=== PATIENT | female | born 1985 | race Caucasian/White ===

== ENCOUNTER 2020-01-11 15:37 | Inpatient (IN) | payer BC ==
[2020-01-11 16:18] VITALS: BP 126/62; TEMP 98.3; BMI 31.9
[2020-01-11] MEDS ORDERED: hydrALAZINE 20 MG/ML VIAL SLOW IVP PRN ×2 (16:49→17:33)
[2020-01-11] MEDS ORDERED: Lactated Ringer's 1,000 ML IV SCH (17:00)
--- NOTE | 2020-01-11 17:10 | PDOC.LDHP ---
Labor and Delivery H&P Chief complaint: contractions HPI: Patient is a 34 yo at 32.4 wga who presents with complaint of contractions that started around 1215pm today. Says she tried laying down and taking a shower but had no relief. Was originally feeling contractions about every 5-7 min apart, now feeling them about every 2-3 min apart which is consistent with what is seen on FHT. Patient denies any other symptoms. Denies dysuria, back pain, fever/chills, nausea, vomiting, vaginal bleeding, vaginal discharge, or loss of fluid. Feeling baby move often. No recent intercourse. Current gestational age (weeks): 32 (32.4) Due date: 03/03/20 Grav: 2 Para: 1 (1001) OB History Details: 1st was at 39 weeks gestational age, no complications Denies issues in current . States no issues with blood pressure or blood sugars any . Current complications: none Abnormal US findings: No Past Medical History: kidney stones in 1st Current medications: pre- vitamins Previous surgical history: none Allergies/Adverse Reactions: Allergies Allergy/AdvReac Type Severity Reaction Status Date / Time adhesive tape Allergy Verified 01/11/20 16:19 Social history: none - Physical Exam Vital signs reviewed and normal: yes General: NAD, resting, breathing through contractions Lungs: nonlabored breathing Abdomen: gravid Extremeties: no edema FHT: category 1, variability present [place] contractions every: 2-3 min - Vaginal Exam cm dilated: 2 Effacement: 25% Station: -3 - OB Labs Blood type: unknown RH: unknown Antibody Screen: unknown HIV: unknown RPR: unknown HEPSAg: unknown 1 hour GCT: unknown GBS: unknown - Assessment contractions - Plan Plan: observation in L&D -: Patient is a 34 yo at 32.4 wga who presents with contractions: Labor, rule out -SVE at 1645 is 2/3, posterior, soft -FHT reactive and reassuring, category 1 with moderate variability and 2 accels and no decels seen -check TVUS for cervical length -obtain FFN, will send if cervical length >2.5 cm -give 1 L IVF LR Dispo: Will observe in L&D triage. Await results of TVUS, if cervical length <2.5 cm will plan to admit to L&D. If cervical length >2.5 cm then plan to send FFN. Addendum 1730: Cervical length is 1.9 cm. Will admit to L&D. Please refer to Dr. Harley's dictation after this H&P for further management decisions.
--- NOTE | 2020-01-11 17:24 | HP ---
HISTORY AND PHYSICAL AND FACULTY ATTESTATION TIME OF EVALUATION: Roughly 1640 hours, it is now 1703 hours. LOCATION: Labor and Delivery Triage and Triage B. HISTORY OF PRESENT ILLNESS: In brief, I saw this patient along with Ceci Fung, who is our resident on-call. In brief, this is a G2, P1, 34-year-old female, who is at 32 weeks and 4 days with no previous history of (last delivery was vaginal at 39 weeks), who states that she may be having irregular contractions. She denies any vaginal bleeding or leakage of fluid or any recent trauma. She denies having recent intercourse. PAST MEDICAL HISTORY: Otherwise uncomplicated. OB HISTORY: Previous vaginal delivery at term and she had renal stones with that gestation. Other history is otherwise negative. PHYSICAL EXAMINATION: VITAL SIGNS: Stable and she is afebrile. She is normotensive. GENERAL: She is in no acute distress and does not clinically appear to be laboring. Interventions ordered. We have seen the patient at bedside and we have ordered a fibronectin collection as well as a cervical exam. If her cervix is less than 2 cm, we will also order a transvaginal ultrasound for cervical length. MONITOR: monitor was evaluated by me and Dr. Fung. We find the heart tones to be reactive at 32 weeks. There are contractions about every 5-7 minutes or so on tocodynamometer. ASSESSMENT: This is a patient at 32 weeks and 4 days, G2, P1, with a previous term delivery, here for possible labor. PLAN: 1. Check fFN and hold. 2. Check cervix. 3. If cervix is less than 2 cm, check transvaginal ultrasound and follow that protocol. 4. We will send the fFN. If the cervical length is less than 2.5 cm, let the fFN make final decision along with contraction pattern. 5. We will also give 1 L of LR fluid. Job ID: [id number]
[2020-01-11] MEDS ORDERED: Penicillin G Potassium 5 MILL.UNITS VIAL ONE (17:30)
[2020-01-11] MEDS ORDERED: Betamet Acet/Betamet Na Ph 30 MG/5 ML VIAL ONE (17:30)
[2020-01-11] MEDS ORDERED: HYDROcodone/Acetaminophen 5/325 mg Tablet PO PRN ×2 (17:33)
[2020-01-11] MEDS ORDERED: Promethazine HCl 25 MG/ML VIAL IM PRN (17:33)
[2020-01-11] MEDS ORDERED: Ibuprofen 800 MG TAB PO PRN (17:33)
[2020-01-11] MEDS ORDERED: NS / Oxytocin 40 units/1000ml 1,000 ML IV PRN (17:33)
[2020-01-11] MEDS ORDERED: Ondansetron PF 4 MG/2 ML Vial IVP PRN (17:33)
[2020-01-11] MEDS ORDERED: Lidocaine 1% (PF) 30 ML VIAL SC PRN (17:33)
[2020-01-11] MEDS ORDERED: Butorphanol Tartrate 1 MG/ML VIAL SLOW IVP PRN (17:33)
--- NOTE | 2020-01-11 17:33 | PDOC.BPN ---
- Brief Progress Note Encounter Time: 17:30 TVUS is 1.9cm by direct communication from [employer]. We will: 1. Admit fopr PTL 2. Call NICU 3. get EFW for pedi 4. Start GBS coverage 5. Past 32 weeks so no Mag Sulfate 6. Steroids
[2020-01-11] MEDS ORDERED: Penicillin G Potassium 5 MILL.UNITS in Sodium Chloride 0.9% 100 ML IVPB SCH (17:45)
--- NOTE | 2020-01-11 18:03 | PDOC.BPN ---
- Brief Progress Note Encounter Date: 01/11/20 Procardia 10 mg po TID x 48 hours for tocolysis just ordered per ACOG Bulletin. Start is now, stop is 01/13/20 at 1830
--- NOTE | 2020-01-11 18:09 | ULT ---
LIMITED TRANSVAGINAL OB ULTRASOUND: 01/11/20 HISTORY: Evaluate cervical length. FINDINGS/IMPRESSION: Transvaginal pelvic ultrasound demonstrates a cervical length of about 1.4 cm. POS: OFF
[2020-01-11 18:12] LABS: Hemoglobin 10.8 g/dL (12.0-16.0); Mean Corpuscular HGB CONC 34.4 g/dL (32.0-36.0); Mean Corpuscular Hemoglobin 29.6 pg (27.0-31.0); Mean Corpuscular Volume 86.2 fL (78.0-98.0); Mean Platelet Volume 9.7 fL (7.4-10.4); Platelet Count 158 thou/uL (130-400); RBC Distribution Width 11.7 % (11.5-14.5); Red Blood Cell (RBC) Count 3.64 mill/uL (4.20-5.40); White Blood Cell (WBC) Count 10.2 thou/uL (4.8-10.8)
[2020-01-11] MEDS: Betamet Acet/Betamet Na Ph 30 MG/5 ML VIAL IM SCH (18:12)
[2020-01-11] MEDS: Penicillin G 2.5 MILL.units 2.5 MILL.UNITS in Premix Bag 1 BAG IVPB SCH ×2 (18:24→21:45)
[2020-01-11] MEDS: NIFEdipine 10 MG CAP PO SCH (18:26)
--- NOTE | 2020-01-11 18:28 | PDOC.BPN ---
- Brief Progress Note Encounter Date: 01/11/20 Encounter Time: 18:25 Correction: cervical length is 1.3 cm
--- NOTE | 2020-01-11 18:37 | PDOC.APC ---
Antepartum Consult LEWIS ARZOLA is a 34 year old female at [32 4/7] gestational weeks. I was asked by Dr Harley to speak with the patient regarding anticipated course for a baby born at 32 weeks. I spoke with the patient. I outlined that the timing and mode of delivery is a decision that will be made by the OB service. Once the patient is taken for delivery, the resuscitation team will be present. The initial focus will be on respiratory stabilization and may include minimal assistance, CPAP or intubation with surfactant administration. I discussed that the patient will need to be admitted to the NICU in an isolette due to temperature instability associated with prematurity. We will then obtain IV access (peripheral will be first line, umbilical if unable to obtain peripheral) as babies are at risk for hypoglycemia. We discussed that babies born are at higher risk for feeding intolerance, infection and jaundice. I discussed that breastmilk is the best nutrition for babies and she is strongly encouraged to pump after delivery. Mother does plan to breastfeed and consented to the use of donor milk. I explained that the duration of hospital stay will be determined on the clinical course of the baby. She had the opportunity to ask questions. I encouraged her to contact our service again if additional questions arise. At the time of consult all maternal serologies are pending. I spent a total of 20 minutes with patient & family with greater than 50% of the time counseling & coordinating care.
[2020-01-11 18:50] LABS: HBSAg Index 0.15 S/CO (0-0.99); HIV (1/2) Antibody/Antigen Non-Reactive (NonReactive); HIV 1/2 INDEX 0.07 S/CO (<1.00); Hep B Surf Ag Non-Reactive S/CO (NonReactive); Syphilis Antibody Nonreactive (Nonreactive); Syphilis Antibody Index 0.02 S/CO (<1.00 Non-Reactive)
--- NOTE | 2020-01-11 18:56 | PDOC.BPN ---
- Brief Progress Note Encounter Time: 18:54 Sono EFW states 2608 grams...which is S>D (measuring 35 weeks). Howeverm the EDC we have plces her at 32 weeks 4 days. I do not have the Record and [facility] is not here to confirm EFW. Radha has requested EDC and chart from [facility] to confirm EDC
--- NOTE | 2020-01-11 19:09 | PDOC.BPN ---
- Brief Progress Note Encounter Date: 01/11/20 Encounter Time: 19:05 Per record, EDC confirmed and EGA is 32 weeks 4 days with EFW 2608g
[2020-01-11] MEDS: Lactated Ringer's 1,000 ML IV SCH ×2 (19:26→20:29)
--- NOTE | 2020-01-11 19:45 | ULT ---
ULTRASOUND OBSTETRICAL LIMITED: 01/11/20 at 6:45 p.m. HISTORY: 34-year-old female in third trimester of with labor. Evaluate weight. FINDINGS: number: Enriquez. lie: Cephalic. Maternal cervix: Obscured. Placenta: Anterior. No placenta previa. Amniotic fluid volume: 9.5 cm. heart rate: 126 bpm anatomy not evaluated. biometry: Head circumference (HC): 32.6 cm 36w 6d Biparietal diameter (BPD): 9.1 cm 36w 6d Abdominal circumference (AC): 31.0 cm 35w 0d Femur length (FL): 6.7 cm 34w 2d Average ultrasound age (AUA): 35w 5d Estimated date of delivery (RUSTY): 02/10/20 Last menstrual period (LMP): 05/28/19 Gestational age by LMP: 32w 4d Estimated weight (EFW): 2608 g +/- 386 g (5 lb. 12 oz +/- 14 oz). IMPRESSION: 1. Live third trimester intrauterine gestation. 2. Estimated gestational age of 35 weeks, 5 days. 3. Vertex lie. 4. Estimated weight of 2608 g +/- 386 g (5 lb. 12 oz. +/- 14 oz). NISHANT Jenkins POS: SAMANTHA
--- NOTE | 2020-01-11 21:47 | PDOC.EVN ---
Event Note - Event Note Event Note: Stopped in to visit with patient while here for back up request. Pt reports a mix of [place] vs. mildly painful ctx every few minutes but is able to rest comfortably through them. Pt is hungry and requesting food. No concerns. Plan of care with [facility] to follow this evening and for part of the day tomorrow until I am available reviewed.
[2020-01-11] MEDS ORDERED: Zolpidem Tartrate 5 MG TAB PO SCH ×2 (23:00→23:30)
[2020-01-12] MEDS ORDERED: NIFEdipine 10 MG CAP ONE (02:33)
[2020-01-12] MEDS: NIFEdipine 10 MG CAP PO SCH ×3 (02:34→18:00)
[2020-01-12] MEDS: Penicillin G 2.5 MILL.units 2.5 MILL.UNITS in Premix Bag 1 BAG IVPB SCH ×4 (02:34→14:47)
--- NOTE | 2020-01-12 06:03 | PDOC.BPN ---
- Brief Progress Note Encounter Date: 01/12/20 Encounter Time: 06:00 L&D HD2 EGA 32 weeks 5 days Meds: celestone; PNG; procardia for tocolysis Stable. No LOF, no VB Vitals wnl TOCO with decreased CTXs, FHTs reactive Arrestd PTL at 32 weeks 5 days, sono with EFW 2600 so possible LGA. Dates are at 32 weeks and 5 Last CX check was 2 cm
--- NOTE | 2020-01-12 06:12 | PDOC.BPN ---
- Brief Progress Note Encounter Time: 06:10 At bedside. EFW reviewed. BUT dates are very good due to timed ovulation with letrozole. Could be just LGA but prior 1 hr was normal
--- NOTE | 2020-01-12 08:14 | PDOC.BPN ---
- Brief Progress Note Encounter Time: 08:10 Patient has a child at home with pending surgery tomorrow AM and would like to go home today in the vening if stable for this. We have addressed as a team and nursing is aware. Possible edenilson at 1900 after second celestone.
[2020-01-12] MEDS: Lactated Ringer's 1,000 ML IV SCH (10:53)
[2020-01-12] MEDS: Betamet Acet/Betamet Na Ph 30 MG/5 ML VIAL IM SCH (18:00)
[2020-01-12 18:19] LABS: SARS-CoV-2 MS2 Positive; SARS-CoV-2 N Gene Negative; SARS-CoV-2 S Gene Negative; SARS-CoV-2 by NAA Not Detected (NotDetected); SARS-CoV-2 orf1ab Negative
[2020-01-12] MEDS ORDERED: Zolpidem Tartrate 5 MG TAB PO SCH (21:00)
--- NOTE | 2020-01-13 12:05 | DIS ---
DATE OF ADMISSION: 01/11/2020 DATE OF DISCHARGE: 01/12/2020 ADMISSION DIAGNOSIS: contractions at 32 weeks. DISCHARGE DIAGNOSIS: contractions at 32 weeks with clinical resolution of symptoms. HOSPITAL COURSE: Ms. Domitila Solorio presented to Labor and Delivery on 01/11/2020 and was admitted by the hospitalist for concern for labor. The patient was given a dose of Celestone for lung maturity, started on penicillin for group B strep prophylaxis as well as oral nifedipine for symptomatic contractions. Approximately 5 hours after admission, the patient was already feeling better with less uterine contractions. She remained overnight through hospital day #2. She continued to report less symptomatic contractions and Ivan Galarza contractions. On hospital day #2, she received her second dose of Celestone. She reported approximately 1 to 2 Ivan Galarza or mild contractions per hour and requested discharge home with close outpatient followup. The patient was discharged home in good condition with instructions to follow up in my office with her weekly scheduled visit. Nifedipine 10 mg oral was prescribed for symptomatic uterine irritability, and strict labor precautions were given. Job ID: [id number]
== END 2020-01-12 18:15 | disposition home or self-care (01) | DRG 833 ==
LOC: L&D/OP 15:37 → L&D 19:20
PROVIDERS: ADMIT Obstetrics & Gynecology; ATTEND Obstetrics & Gynecology
DX: O60.03 Preterm labor without delivery, third trimester (principal); Z3A.32 32 weeks gestation of pregnancy; Z20.828 Contact with and (suspected) exposure to other viral communicable diseases; O36.63X0 Maternal care for excessive fetal growth, third trimester, not applicable or unspecified
CPT/HCPCS: 36415; 76815; 85027; 86780; 86850; 86900; 86901; 87081; 87340; 87389; 87635; 99285; J0702; J2540; U0003

== ENCOUNTER 2020-01-24 20:36 | Observation (INO) | payer BC ==
[2020-01-24 21:14] VITALS: BP 111/70; BMI 32.4
[2020-01-24] MEDS ORDERED: hydrALAZINE 20 MG/ML VIAL SLOW IVP PRN (22:30)
--- NOTE | 2020-01-24 22:31 | PDOC.LDHP ---
Labor and Delivery H&P Chief complaint: contractions HPI: 34yo @ 34.3 presents for ctx. Patient was recently admitted on 01/11/20 at 32.4 for concern for labor. At that time CL was 1.9, patient was given Celestone x2, nifedipine, GBS was obtained and negative. Patient was observed for 48 hours and ctx stopped and patient was discharged with labor precautions. Patient has had intermittent ctx and sanaz clark since discharge and then starting today at approx 1700 patient had onset of ctx that were more intense, about every 2-3 min, and persistent. Denies any VB, LOF, VD, dysuria, frequency, hematuria, fever/chills, CP, SOB, n/v, ARIAS, vision changes. Current gestational age (weeks): 34 (34.3) Due date: 03/03/20 Grav: 2 Para: 1 (1001) OB History Details: 1st was at 39 weeks gestational age, no complications Did have a nephrostomy tube placed during prior for nephrolithiasis. No recurrence. Current complications: none Past Medical History: none Current medications: pre- vitamins Previous surgical history: none Allergies/Adverse Reactions: Allergies Allergy/AdvReac Type Severity Reaction Status Date / Time adhesive tape Allergy Verified 01/24/20 21:05 No Known Drug Allergies Allergy Verified 01/24/20 21:05 Social history: none - Physical Exam Vital signs reviewed and normal: yes General: NAD, resting, other (mild discomfort with ctx but ambulating well and comfortable) Heart: RRR Lungs: CTAB Abdomen: gravid Extremeties: no edema FHT: category 1 (accels, no deccels, moderate variability) [place] Guerra contractions every: 2-3min - Vaginal Exam cm dilated: 3 Effacement: 50% (60) Station: 0 - OB Labs Blood type: O RH: positive Antibody Screen: negative HEPSAg: negative (hep C negative) GBS: negative Rubella: immune - Assessment 34yo @ 34.3 presents for ctx, concern for labor # labor r/o - s/p Celestone x2 @ 32.4wk at previous admission for labor. At that time CL was 1.9cm, patient was 2/th/high. Anterior placenta. GBS negative. - SVE today /0 - Cat1 FHT with ctx q2-3min - Will monitor for approx 2 hours, IV and PO hydration, recheck SVE to determine if in labor PCP: Raffi Dispo: Monitor FHT, recheck in 2 hours. Above plan discussed with Dr. Villalta who agrees with plan.
[2020-01-24] MEDS ORDERED: Lactated Ringer's 1,000 ML IV SCH (23:00)
[2020-01-24 23:01] LABS: Bilirubin Negative (Negative); Blood, Urine Negative (Negative); Clarity Clear (Clear); Glucose, Urine (Dipstick) Normal (Negative); Ketone, Urine Negative (Negative); Leukocyte 25 Leu/uL (Negative); Nitrite Negative (Negative); Protein, Urine (Dipstick) 10 mg/dL (Neg-Trace); RBC/HPF 0-3 HPF (0-3); Specific Gravity, Urine 1.016 (1.002-1.036); Squamous Epithelial 0-3 HPF (0-3); Urobilinogen Normal mg/dL (Less than 2); WBC/HPF 0-3 HPF (0-3)
[2020-01-24 23:02] LABS: Bacteria/HPF 1+ HPF (None Seen)
[2020-01-24 23:03] LABS: Urine Culture Reflex Yes Yes
[2020-01-25] MEDS ORDERED: Promethazine HCl 25 MG/ML VIAL IM PRN (01:14)
[2020-01-25] MEDS ORDERED: Ondansetron PF 4 MG/2 ML Vial IVP PRN (01:14)
[2020-01-25] MEDS ORDERED: Butorphanol Tartrate 1 MG/ML VIAL SLOW IVP PRN (01:14)
[2020-01-25] MEDS ORDERED: Acetaminophen 500 MG TAB PO PRN (01:14)
[2020-01-25] MEDS ORDERED: hydrALAZINE 20 MG/ML VIAL SLOW IVP PRN (01:14)
[2020-01-25] MEDS ORDERED: Sodium Chloride 0.9% 1,000 ML IV SCH (01:30)
[2020-01-25] MEDS ORDERED: Zolpidem Tartrate 5 MG TAB PO SCH (01:30)
--- NOTE | 2020-01-25 01:53 | PDOC.BPN ---
- Brief Progress Note Encounter Date: 01/25/20 Encounter Time: 01:49 O: Ctx have increased in intensity, still about q3-4min. No LOF, VB. No acute concerns. S: VSS Cat 1 strip with accels, no deccels. Ctx q3-4min SVE /0 A/P: 34yo @ 34.4 presented for ctx, concern for labor # labor r/o - s/p Celestone x2 @ 32.4wk at previous admission for labor. At that time CL was 1.9cm, patient was 2/th/high. Anterior placenta. GBS negative. - SVE /0 at presentation - SVE @ 2330 /0 - Cat1 FHT with ctx q3-4min - UA positive for leukocytes and 1+ bacteria, will start on Rocephin, UCx pend ing. - Due to increased cervical dilation, will admit to obs for overnight monitoring. MIVF. Monitor for signs of labor, recheck SVE in AM or earlier if indicated. PCP: Raffi Dispo: Admit to obs for monitoring of possible labor. Rocephin for UTI. Above plan discussed with patient at bedside who voiced agreement and understanding. Above plan discussed with Dr. Villalta who agrees with above plan and documentation.
[2020-01-25] MEDS ORDERED: cefTRIAXone\\ROCEPHIN 1 GM in Sodium Chloride 0.9% 100 ML IVPB SCH (02:00)
[2020-01-25 07:38] VITALS: TEMP 98.5
--- NOTE | 2020-01-25 07:38 | PDOC.LDPN ---
Labor & Delivery Progress Note - Subjective Subjective: comfortable, no concerns - Objective Vital signs reviewed and normal: yes General: NAD, resting Uterine fundus: non tender FHT: category 1 [place] contractions every: 4min Plan: continue plan of care -: 34yo @ 34.4 presented for ctx, concern for labor # labor r/o - s/p Celestone x2 @ 32.4wk at previous admission for labor. At that time CL was 1.9cm, patient was 2/th/high. Anterior placenta. GBS negative. - SVE 60/0 at presentation - SVE @ 2330 460/0 - SVE @ 0730 60/0 - Cat1 FHT with ctx q3-4min - UA positive for leukocytes and 1+ bacteria, will start on Rocephin, UCx pending. - Discussed options for discharge home vs continued monitoring and patient would like to be monitored longer on L&D. Agree with plan. - Will continue to monitor and recheck SVE, if no progression later in the day, would be appropriate for discharge with strict labor precautions PCP: Raffi Dispo: Admitted to obs for monitoring of labor. No cervical change overnight, will continue to monitor. Possible admission for labor vs discharge with labor precautions this PM pending course. Above plan discussed with Dr. Villalta who agrees with above plan and documentation. Addendum - Attending - Attending Attestation Date/Time: 01/27/20 [id number] I personally evaluated the patient and discussed the management with Dr. Domingo I agree with the History, Examination, Assessment and Plan documented above with any addition or exceptions noted below.
[2020-01-25] MEDS ORDERED: Prenatal Vitamin 1 TAB PO SCH (09:00)
--- NOTE | 2020-01-25 14:45 | PDOC.LDPN ---
Labor & Delivery Progress Note - Subjective Subjective: comfortable - Objective Vital signs reviewed and normal: yes General: NAD, resting Uterine fundus: non tender SVE: UNCHANGED [place] contractions every: 5-6 min Other exam findings: - Assessment (1) contractions Code(s): O47.9 - FALSE LABOR, UNSPECIFIED Status: Acute Plan: other (FACULTY: I have seen the patient at bedside. Agree with assessment and plan. ) -: Patient monitored for extended observation. Contractions have slowed down and become less painful. Urinalysis suspicious for UTI, abx sent to outpatient pharmacy. SVE unchanged from prior exam >6 hours. . Sent home with labor precautions. She is 34.6 wks today. She has already received steroids in the event of delivery. She will f/u with pcp next week. The patient was understanding and in agreement with the plan of care. Discussed case with Dr. Harley attending. Maria Elena HOLT PGY2
== END 2020-01-25 14:55 | disposition home health service (06) ==
LOC: L&D/OP 20:36 → L&D 01-25 01:14 → INTOOBSV 01-25 01:14
PROVIDERS: ADMIT Obstetrics & Gynecology; ATTEND Obstetrics & Gynecology
DX: O47.03 False labor before 37 completed weeks of gestation, third trimester (principal); Z3A.34 34 weeks gestation of pregnancy; Z91.048 Other nonmedicinal substance allergy status
CPT/HCPCS: 81001; 87086; 96365; G0378; J0696; J3490

== ENCOUNTER 2020-02-21 08:26 | Outpatient (CLI) | payer BC ==
[2020-02-21 20:15] LABS: SARS-CoV-2 MS2 Positive; SARS-CoV-2 N Gene Negative; SARS-CoV-2 S Gene Negative; SARS-CoV-2 by NAA Not Detected (NotDetected); SARS-CoV-2 orf1ab Negative
== END 2020-02-21 08:27 | disposition home or self-care (01) ==
LOC: LABBT 08:26
PROVIDERS: ATTEND Obstetrics & Gynecology
DX: Z01.812 Encounter for preprocedural laboratory examination (principal); Z20.828 Contact with and (suspected) exposure to other viral communicable diseases
CPT/HCPCS: 87635; U0003

== ENCOUNTER 2020-02-21 12:53 | Inpatient (IN) | payer BC ==
[~2020-02-21 12:53] MED LIST: Bupivacaine 0.25% HCL 30 ML VIAL ONE; Bupivacaine PF 0.5% 30 ML VIAL ONE; Bupivacaine/Epinephrine 0.25% 30 ML VIAL ONE; Bupivacaine/Epinephrine 0.5% 10 ML VIAL ONE
[2020-02-21 13:37] VITALS: BMI 34.4
[2020-02-21 14:14] LABS: Amnisure Test RUPTURE DETECTED (No Rupture)
[2020-02-21 14:15] LABS: Amnisure Internal Control QC ACCEPTABLE (ACCEPTABLE)
[2020-02-21] MEDS ORDERED: Ondansetron PF 4 MG/2 ML Vial IVP PRN ×3 (14:42→22:33)
[2020-02-21] MEDS ORDERED: NS / Oxytocin 40 units/1000ml 1,000 ML IV PRN (14:42)
[2020-02-21] MEDS ORDERED: hydrALAZINE 20 MG/ML VIAL SLOW IVP PRN ×2 (14:42→22:33)
[2020-02-21] MEDS ORDERED: Butorphanol Tartrate 1 MG/ML VIAL SLOW IVP PRN (14:42)
[2020-02-21] MEDS ORDERED: Lidocaine 1% (PF) 30 ML VIAL SC PRN (14:42)
[2020-02-21] MEDS ORDERED: Promethazine HCl 25 MG/ML VIAL IM PRN ×2 (14:42→16:26)
[2020-02-21] MEDS ORDERED: Ibuprofen 800 MG TAB PO PRN (14:42)
[2020-02-21] MEDS ORDERED: Acetaminophen 500 MG TAB PO PRN (14:42)
[2020-02-21] MEDS ORDERED: HYDROcodone/Acetaminophen 5/325 mg Tablet PO PRN ×4 (14:42→22:33)
[2020-02-21] MEDS ORDERED: Meperidine HCl/PF 25 MG/ML VIAL IM/IV PRN (14:42)
[2020-02-21] MEDS ORDERED: Lactated Ringer's 1,000 ML IV SCH (14:45)
--- NOTE | 2020-02-21 14:46 | PDOC.LDHP ---
Labor and Delivery H&P Chief complaint: loss of fluid HPI: 34 yo WF presents c/o LOF clear starting at 12PM today. Also reports + bloody show. Current gestational age (weeks): 38 Due date: 03/03/20 Dating criteria: last menstrual period Grav: 2 Para: 1 OB History Details: x1 at term. PNC with Dr. Nugent, no complications. Current complications: none Abnormal US findings: No Past Medical History: none Current medications: pre- vitamins Previous surgical history: other (T&A) Allergies/Adverse Reactions: Allergies Allergy/AdvReac Type Severity Reaction Status Date / Time adhesive tape Allergy Verified 01/24/20 21:05 No Known Drug Allergies Allergy Verified 01/24/20 21:05 Social history: none - Physical Exam Vital signs reviewed and normal: yes General: resting Heart: RRR Lungs: CTAB Abdomen: gravid Extremeties: trace edema FHT: category 1 [place] contractions every: UCs q 5 mins - OB Labs GBS: negative - Assessment L&D Assessment: term rupture in membranes - Plan Plan: admit to L&D, labor augmentation if indicated, informed consent obtained, anesthesia consult for pain management, other (Dr. Nugent notified of admit)
[2020-02-21 15:42] LABS: Hemoglobin 10.2 g/dL (12.0-16.0); Mean Corpuscular HGB CONC 33.9 g/dL (32.0-36.0); Mean Corpuscular Hemoglobin 27.9 pg (27.0-31.0); Mean Corpuscular Volume 82.4 fL (78.0-98.0); Mean Platelet Volume 11.6 fL (7.4-10.4); Platelet Count 129 thou/uL (130-400); Red Blood Cell (RBC) Count 3.66 mill/uL (4.20-5.40); White Blood Cell (WBC) Count 8.8 thou/uL (4.8-10.8)
[2020-02-21] MEDS ORDERED: DISCONTINUE ALL PREVIOUS NARCOTICS FS SCH (15:45)
[2020-02-21] MEDS ORDERED: Bupivacaine 0.5% 20 ML, fentaNYL Citrate/PF 400 MCG in Sodium Chloride 0.9% 72 ML EPIDURAL SCH (15:45)
[2020-02-21 16:20] LABS: HBSAg Index 0.65 S/CO (0-0.99); Hep B Surf Ag Non-Reactive S/CO (NonReactive); Syphilis Antibody Nonreactive (Nonreactive); Syphilis Antibody Index 0.02 S/CO (<1.00 Non-Reactive)
[2020-02-21] MEDS: Lactated Ringer's 1,000 ML IV SCH (16:24)
[2020-02-21] MEDS ORDERED: Acetaminophen 325 MG TAB PO PRN (16:26)
[2020-02-21] MEDS ORDERED: diphenhydrAMINE 50 MG/ML VIAL IVP PRN (16:26)
[2020-02-21] MEDS ORDERED: Lactated Ringer's 500 ML IV PRN (16:26)
[2020-02-21] MEDS ORDERED: ePHEDrine 50 MG/ML VIAL SLOW IVP PRN (16:26)
[2020-02-21] MEDS ORDERED: Naloxone HCl 0.4 mg/ml Vial IVP PRN ×2 (16:26)
[2020-02-21] MEDS ORDERED: Fentanyl 4 mcg/Bupivacaine 0.1% Cassette 100 ML EPIDURAL SCH (16:30)
[2020-02-21] MEDS ORDERED: Communication Order-Pharmacy FS SCH (16:30)
[2020-02-21] MEDS ORDERED: Fentanyl 100 MCG/2 ML VIAL ONE (17:40)
[2020-02-21] MEDS ORDERED: Fentanyl 100 MCG/2 ML VIAL SLOW IVP PRN (18:24)
--- NOTE | 2020-02-21 18:53 | PDOC.OPDEL ---
OB Operative/Delivery Note Delivery Dr/Surgeon: Raffi Pre-Delivery Diagnosis: active labor Procedure/Post Delivery Dx: spontaneous vaginal delivery Weeks gestation: 38 Anesthesia: epidural - Findings A Sex: male - 1 min: 8 - 5 min: 9 - Additional Findings/Plan Placenta delivered: spontaneous Repaired Obstetrical Laceration: periurethral Estimated blood loss: 250ml Post delivery plan: routine recovery
[2020-02-21] MEDS ORDERED: NS w/ Oxytocin 30 units 500 ML ONE (19:21)
[2020-02-21] MEDS ORDERED: Bisacodyl 10 MG SUPP PR PRN (22:33)
[2020-02-21] MEDS ORDERED: Lanolin Ointment 7 GM TUBE TOP PRN (22:33)
[2020-02-21] MEDS ORDERED: diphenhydrAMINE 25 MG CAP PO PRN (22:33)
[2020-02-21] MEDS ORDERED: Milk Of Magnesia 30 ML UDCUP PO PRN (22:33)
[2020-02-21] MEDS ORDERED: Preparation H Ointment 28 GM TUBE PR PRN (22:33)
[2020-02-21] MEDS ORDERED: NS / Oxytocin 40 units/1000ml 1,000 ML IV SCH (22:33)
[2020-02-21] MEDS ORDERED: Adacel (T-DAP) 0.5 ML SYRINGE IM ONE (22:33)
[2020-02-21] MEDS ORDERED: Benzocaine-Menthol 82.5 ML CAN TOP PRN (22:33)
[2020-02-21] MEDS: Ibuprofen 800 MG TAB PO SCH (23:29)
[2020-02-22] MEDS: Docusate Calcium (SURFAK) 240 MG CAP PO SCH ×3 (01:00→21:26)
--- NOTE | 2020-02-22 05:56 | PDOC.PP ---
Post Progress Note Post Day #: PPD1 Subjective: Resting, no c/o. PO intake tolerated: yes Flatus: yes Ambulation: yes Vital Signs (12 hours) Temp Pulse Resp BP 02/22/20 04:00 98.0 F 86 14 115/58 L 02/21/20 23:20 98.3 F 89 15 116/66 02/21/20 22:20 98.4 F 84 16 120/60 02/21/20 21:20 98.4 F 84 16 116/72 Weight Weight 99.79 kg - Physical Examination General: NAD Respiratory: non-labored breathing Neurological: no gross focal deficits Psychiatric: normal affect Result Diagrams: 02/21/20 15:13 Additional Labs: Post Labs Hep Bs Antigen Non-Reactive S/CO (NonReactive) 02/21/20 15:13 Blood Type O POSITIVE 02/21/20 15:13 - Assessment/Plan Doing well s/p Routine PP care Anticipate home in AM
[2020-02-22] MEDS: Ferrous Sulfate 325 MG TAB PO SCH ×2 (08:14→16:57)
[2020-02-22] MEDS: Prenatal Vitamin 1 TAB PO SCH (08:26)
[2020-02-22] MEDS: Ibuprofen 800 MG TAB PO SCH ×2 (08:26→17:02)
[2020-02-22] MEDS ORDERED: FLU VACC QS2020-21(6MOS UP)/PF 60 MCG/0.5 ML SYRINGE IM ONE (09:00)
[2020-02-23] MEDS: Ibuprofen 800 MG TAB PO SCH ×2 (00:09→08:57)
--- NOTE | 2020-02-23 06:13 | PDOC.PP ---
Post Progress Note Post Day #: 2 Subjective: Patient doing well. She was actually discharged yesterday but stayed overnight with baby due to baby bili level. Cleared for DC today. PO intake tolerated: yes Flatus: yes Ambulation: yes Vital Signs (12 hours) Temp Pulse Resp BP Pulse Ox 02/22/20 21:00 97.9 F 88 20 109/70 98 Weight Weight 220 lb - Physical Examination General: NAD Respiratory: clear to auscultation bilaterally, non-labored breathing Abdominal: no distention, appropriately TTP Extremities: negative homans (B) Neurological: no gross focal deficits Psychiatric: A&Ox3, normal affect Result Diagrams: 02/21/20 15:13 Additional Labs: Post Labs Hep Bs Antigen Non-Reactive S/CO (NonReactive) 02/21/20 15:13 Blood Type O POSITIVE 02/21/20 15:13 (1) Vaginal delivery Code(s): O80 - ENCOUNTER FOR FULL-TERM UNCOMPLICATED DELIVERY Status: Acute - Assessment/Plan Stable and desires DC home after circ. Routine PP care.DC today as scheduled.
[2020-02-23] MEDS: Ferrous Sulfate 325 MG TAB PO SCH (07:30)
[2020-02-23 08:50] VITALS: BP 110/56; TEMP 98
[2020-02-23] MEDS: Prenatal Vitamin 1 TAB PO SCH (08:57)
[2020-02-23] MEDS: Docusate Calcium (SURFAK) 240 MG CAP PO SCH (08:57)
== END 2020-02-23 12:45 | disposition home or self-care (01) | DRG 807 ==
LOC: L&D/OP 12:53 → L&D 14:42 → 3SW 22:14
PROVIDERS: ADMIT Obstetrics & Gynecology; ATTEND Obstetrics & Gynecology
PROC: 10E0XZZ Delivery of Products of Conception, External Approach (ICD-10-PCS; principal; 2020-02-21)
PROC: 0KQM0ZZ Repair Perineum Muscle, Open Approach (ICD-10-PCS; 2020-02-21)
PROC: 10907ZC Drainage of Amniotic Fluid, Therapeutic from Products of Conception, Via Natural or Artificial Opening (ICD-10-PCS; 2020-02-21)
DX: O70.1 Second degree perineal laceration during delivery (principal); Z37.0 Single live birth; Z20.828 Contact with and (suspected) exposure to other viral communicable diseases; Z3A.38 38 weeks gestation of pregnancy
CPT/HCPCS: 36415; 51702; 84112; 85027; 86780; 86850; 86900; 86901; 87340; 87635; 99285; J3490; J7030; S0020; U0003